=== PATIENT | male | born 1995 | race African-American/Black ===

== ENCOUNTER 2020-12-24 13:48 | Emergency (ER) | payer OTHER ==
[~2020-12-24] VITALS: Ht 167.6 cm; Wt 63.5 kg
[~2020-12-24 13:48] MED LIST: BACTRIM DS TAB1 EACH PO; IBUPROFEN 600600 M1 PO; NOHOMEMEDICATIONS
[2020-12-24 14:24] LABS: URINE BILIRUBIN NEGATIVE (Negative); URINE BLOOD NEGATIVE (Negative); URINE CLARITY CLEAR; URINE COLOR YELLOW; URINE GLUCOSE-RANDOM* NEGATIVE (Negative); URINE KETONES NEGATIVE (Negative); URINE NITRITE-REFLEX NEGATIVE (Negative); URINE PROTEIN (DIPSTICK) NEGATIVE (Negative)
[2020-12-24 14:25] LABS: URINE LEUKOCYTES-REFLEX 1+ (Negative)
[2020-12-24 14:37] LABS: MUCUS 0-3 Light strn/LPF (None Seen); SQUAMOUS 0-3 Few /LPF (0-3)
[2020-12-24 14:38] LABS: CASTS None Seen /LPF (None Seen); CRYSTALS None Seen /LPF (None Seen)
[2020-12-24 14:51] LABS: BACTERIA-REFLEX 1-9 Few /HPF (None Seen); URINE RBC None Seen /HPF (0-2)
[2020-12-24 14:52] LABS: URINE WBC-REFLEX 6-15 Few /HPF (0-5)
[2020-12-24] MEDS ORDERED: DOXYCYCLINE 10100 MG PO (15:08)
[2020-12-24 16:00] VITALS: BP 109/68
== END 2020-12-24 16:19 | disposition home or self-care (01) ==
LOC: ER 13:48
PROVIDERS: Nurse Practitioner
DX: N39.0 Urinary tract infection, site not specified (principal); A64 Unspecified sexually transmitted disease